=== PATIENT | female | born 2005 | race African-American/Black ===

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

== ENCOUNTER 2025-01-27 11:58 | Emergency (ER) | payer MEDICAID, OTHER ==
[~2025-01-27] VITALS: Ht 167.6 cm; Wt 73.0 kg
[~2025-01-27 11:58] MED LIST: CIPR2.5D17 LEFTEYE; CIPR2.5D20 LEFTEYE; CYCL2DRO LEFTEYE; PRED5DRO22 LEFTEYE
[2025-01-27 12:04] VITALS: O2SAT 100
[2025-01-27] MEDS: KETOROLAC 15MG/ML VIAL IM ONE (16:17)
[2025-01-27] MEDS: CYCLOBENZAPRINE 10MG TABLET PO ONE (16:18)
[2025-01-27] MEDS: LIDOCAINE 5% PATCH TOP STA (16:18)
[2025-01-27] MEDS: MORPHINE SULFATE 4 MG/ML INJ (FOR IV/IM USE) IM ONE (16:53)
[2025-01-27 18:13] LABS: BASOPHILS % 0.8 % (0.0-2.0); EOSINOPHILS % 3.9 % (0.0-5.0); HEMATOCRIT. 32.0 % (36.0-48.0); HEMOGLOBIN. 10.0 g/dL (12.0-16.0); LYMPHOCYTES % 38.5 % (20.0-50.0); MEAN PLATELET VOLUME 8.9 fl (7.4-10.4); MONOCYTES % 9.1 % (2.0-8.0); NEUTROPHILS % 47.7 % (40.0-76.0); PLATELET 221 x1000/uL (130-400); RED BLOOD CELL COUNT 4.18 mill/uL (4.2-5.4); RED CELL DISTRIBUTION WIDTH 14.0 % (11.6-14.6)
[2025-01-27 18:19] LABS: INR 1.1
[2025-01-27 18:27] LABS: CREATININE 0.6 mg/dL (0.6-1.0); UREA NITROGEN BLOOD 6 mg/dL (9-23)
[2025-01-27 18:29] LABS: ASPARTATE AMINOTRANSFERASE 19 IU/L (<34); BILIRUBIN DIRECT 0.3 mg/dL (<=3.0); BILIRUBIN TOTAL 0.8 mg/dL (0.1-1.0); PROTEIN TOTAL 6.9 g/dL (6.0-8.3)
[2025-01-27 18:32] LABS: HCG SCREEN NEGATIVE
[2025-01-27] MEDS ORDERED: IBUP-1455 MT (19:08)
[2025-01-27] MEDS ORDERED: HYDR-4009 MT (19:08)
[2025-01-27] MEDS ORDERED: FERR325T6 MT (19:13)
[2025-01-27] MEDS ORDERED: DOCU100T MT (19:13)
[2025-01-27 19:40] VITALS: BP 114/68; PULSE 66; RESP 18; TEMP 36.9; O2SAT 100
== END 2025-01-27 19:42 | disposition home or self-care (01) ==
LOC: ER 12:03
DX: S09.90XA Unspecified injury of head, initial encounter (principal); M54.2 Cervicalgia; M25.511 Pain in right shoulder; M79.631 Pain in right forearm; M25.561 Pain in right knee; J34.89 Other specified disorders of nose and nasal sinuses; R51.9 Headache, unspecified; Z91.010 Allergy to peanuts; V47.5XXA Car driver injured in collision with fixed or stationary object in traffic accident, initial encounter; Y93.89 Activity, other specified; Y92.410 Unspecified street and highway as the place of occurrence of the external cause; Y99.8 Other external cause status
CPT/HCPCS: 80076; 80048; 84703; 85025; 85610; 36415; 73030; 73090; 73560; 70450; 70486; 72125; 96372; 99285; J1885; J2270; Z7610

== ENCOUNTER 2025-03-09 13:59 | Emergency (ER) | payer MEDICAID ==
[~2025-03-09] VITALS: Ht 160 cm; Wt 50.0 kg
[~2025-03-09 13:59] MED LIST changes: +DOCU100T MT; +FERR325T6 MT; +HYDR-4009 MT; +IBUP-1455 MT
[2025-03-09 14:06] VITALS: O2SAT 100
[2025-03-09] MEDS ORDERED: PNV1TABL76 MT (18:23)
[2025-03-09 18:40] VITALS: BP 129/77; PULSE 102; RESP 16; TEMP 37; O2SAT 100
== END 2025-03-09 18:41 | disposition home or self-care (01) ==
LOC: ER 13:59
DX: O26.891 Other specified pregnancy related conditions, first trimester (principal); R51.9 Headache, unspecified; Z91.010 Allergy to peanuts; Z3A.08 8 weeks gestation of pregnancy; Y09 Assault by unspecified means; Y93.89 Activity, other specified; Y92.89 Other specified places as the place of occurrence of the external cause; Y99.8 Other external cause status
CPT/HCPCS: 70486; 76801; 81025; 99284